=== PATIENT | female | born 1980 | race Caucasian/White ===

== ENCOUNTER 2017-02-07 12:07 | Emergency (ER) | payer OTHER ==
[2017-02-07 12:18] VITALS: TEMP 98.2; BMI 23.2
--- NOTE | 2017-02-07 12:42 | PDOC ---
History of Present Illness - General Chief Complaint: Nausea/Vomiting Stated Complaint: PAIN, 10 WKS Time Seen by Provider: 02/07/17 12:28 - History of Present Illness Initial Comments: 02/07/17 12:39 Pt. is a 36 y/o female , 10 weeks , who presents to the ED today c/ o increased nausea and vomiting. Pt. states she has history of hyperemisis . States that she has not been able to keep anything down Past History - Past Medical History Allergies/Adverse Reactions: Allergies Allergy/AdvReac Type Severity Reaction Status Date / Time No Known Allergies Allergy Verified 02/07/17 12:10 Home Medications: Ambulatory Orders NK [No Known Home Medication] 12/01/15 Other medical history: none - Surgical History Appendectomy: Yes - Reproductive History Cervical CA: No Dysfunctional Uterine Bleeding: No Ectopic : No Endometrial CA: No Polycystic Ovaries: No Tubal Ligation: No - Psycho/Social/Smoking Cessation Hx Anxiety: No Suicidal Ideation: No Smoking History: Never smoked Have you smoked in the past 12 months: No Information on smoking cessation initiated: No Hx Alcohol Use: No Drug/Substance Use Hx: No Substance Use Type: None Review of Systems - Review of Systems Constitutional: No: Chills, Fever, Malaise, Weakness Respiratory: No: Cough, Shortness of Breath, Wheezing Cardiac (ROS): Yes: Syncope. No: Chest Pain, Lightheadedness, Palpitations, Chest Tightness ABD/GI: Yes: Nausea, Vomiting. No: Constipated, Diarrhea : No: Burning, Dysuria, Discharge, Frequency, Flank Pain Musculoskeletal: Yes: Back Pain (low back pain), Muscle Pain Neurological: No: Headache, Numbness, Paresthesia, Weakness, Dizziness All Other Systems: Reviewed and Negative *Physical Exam - Vital Signs Last Vital Signs Temp Pulse Resp BP Pulse Ox 98.2 F 88 18 126/78 100 02/07/17 12:11 02/07/17 12:11 02/07/17 12:11 02/07/17 12:11 02/07/17 12:11 - Physical Exam Comments: 02/07/17 13:31 GENERAL: Well developed, well nourished. Awake and alert. No acute distress. HEENT: Normocephalic, atraumatic. PERRLA, EOMI. No conjunctival pallor. Sclera are non- icteric. Moist mucous membranes. Oropharynx is clear. NECK: Supple. Full ROM. No JVD. Carotid pulses 2+ and symmetric, without bruits. No thyromegaly. No lymphadenopathy. CARDIOVASCULAR: Regular rate and rhythm. No murmurs, rubs, or gallops. Distal pulses are 2+ and symmetric. PULMONARY: No evidence of respiratory distress. Lungs clear to auscultation bilaterally. No wheezing, rales or rhonchi. ABDOMINAL: Soft. Non-tender. Non-distended. No rebound or guarding. No organomegaly. Normoactive bowel sounds. MUSCULOSKELETAL Normal range of motion at all joints. No bony deformities or tenderness. No CVA tenderness. EXTREMITIES: No cyanosis. No clubbing. No edema. No calf tenderness. SKIN: Warm and dry. Normal capillary refill. No rashes. No jaundice. NEUROLOGICAL: Alert, awake, appropriate. Cranial nerves 2-12 intact. No deficits to light touch and temperature in face, upper extremities and lower extremities. No motor deficits in the in face, upper extremities and lower extremities. Normoreflexic in the upper and lower extremities. Normal speech. Toes are down- going bilaterally. Gait is normal without ataxia. PSYCHIATRIC: Cooperative. Good eye contact. Appropriate mood and affect. ED Treatment Course - LABORATORY CBC & Chemistry Diagram: 02/07/17 13:02 02/07/17 13:02 *DC/Admit/Observation/Transfer Diagnosis at time of Disposition: Hyperemesis gravidarum - Discharge Dispostion Disposition: HOME Condition at time of disposition: Improved Admit: No - Patient Instructions Printed Discharge Instructions: DI for Hyperemesis Gravidarum Additional Instructions: Your blood work, EKG and vital signs were normal today. You were given Zofran for your nausea. Take the medication as needed. Follow up with your ACUPRESSURE THERAPIST tomorrow. Follow up with your primary care doctor tomorrow. Eat small, plain meals to help avoid vomiting. Eat a bland diet including crackers, toast, plain rice, bananas, and apple sauce. You may take tyelnol as needed for pain. Do not take more than 4,000 mg in one day. Return to the ED if you have worsening pain, uncontrollable vomiting or any changes in your symptoms.
[2017-02-07] MEDS ORDERED: SODIUM CHLORIDE 1,000 ML IV STA (12:43)
[2017-02-07] MEDS ORDERED: ONDANSETRON 4 MG/2 ML VIAL IVPUSH ONE ×2 (12:43→15:10)
[2017-02-07] MEDS ORDERED: ONDANSETRON 4 MG/2 ML VIAL ONE (12:48)
[2017-02-07 13:07] LABS: BASOPHIL 0.2 % (0-2.0); EOSINOPHIL 0.2 % (0-4.5); MCH 30.1 pg (25.7-33.7); MCHC 33.6 g/dl (32.0-36.0); MEAN CELL VOLUME 89.6 fl (80-96); MEAN PLT VOLUME 8.6 fl (7.5-11.1); NEUTROPHILS 75.3 % (42.8-82.8); PLATELET COUNT 252 K/MM3 (134-434); RDW 13.1 % (11.6-15.6)
[2017-02-07 13:42] LABS: ALBUMIN 3.3 g/dl (3.4-5.0); ANION GAP 9 (8-16); BILIRUBIN,TOTAL 0.4 mg/dL (0.2-1.0); CO2 29 mmol/L (21-32); CREATININE 0.5 mg/dL (0.55-1.02); GLUCOSE,RANDOM 89 mg/dL (74-106); SGOT/AST 20 U/L (15-37); SGPT/ALT 32 U/L (12-78); TOT PROT 6.9 g/dl (6.4-8.2)
[2017-02-07 13:43] LABS: ALK PHOS 94 U/L (45-117)
[2017-02-07] MEDS ORDERED: ACETAMINOPHEN 1000 MG/100 ML VIAL (NON FORMULARY) IVPB ONE (13:44)
[2017-02-07] MEDS ORDERED: ACETAMINOPHEN INJECTION 100 ML IVPB ONE (13:52)
[2017-02-07 14:06] LABS: URINE APPEARANCE CLEAR; URINE BILIRUBIN NEGATIVE (NEGATIVE); URINE BLOOD 1+ (NEGATIVE); URINE COLOR STRAW; URINE GLUCOSE (UA) NEGATIVE (NEGATIVE); URINE KETONE 1+ (NEGATIVE); URINE LEUK ESTERASE NEGATIVE (NEGATIVE); URINE NITRITE NEGATIVE (NEGATIVE); URINE PROTEIN NEGATIVE (NEGATIVE); URINE UROBILINOGEN NEGATIVE mg/dL (0.2-1.0)
[2017-02-07 14:10] LABS: URINE RBC 1 /hpf (0-3); URINE WBC <1 /hpf (3-5)
--- NOTE | 2017-02-07 14:25 | PDOC ---
*Physical Exam - Vital Signs Last Vital Signs Temp Pulse Resp BP Pulse Ox 98.2 F 88 18 126/78 100 02/07/17 12:11 02/07/17 12:11 02/07/17 12:11 02/07/17 12:11 02/07/17 12:11 Heart Score/ECG Review #1 ECG reviewed & interpreted by me at: 14:54 General ECG Interpretation: Sinus Rhythm, Normal Rate (82), Normal Intervals ( qtc 462, IRBBB), No acute ischemic changes ED Treatment Course - LABORATORY CBC & Chemistry Diagram: 02/07/17 13:02 02/07/17 13:02 - ADDITIONAL ORDERS Additional order review: Laboratory Results 02/07/17 02/07/17 02/07/17 13:15 13:15 13:02 Sodium 136 Potassium 4.2 Chloride 98 Carbon Dioxide 29 Anion Gap 9 BUN 3 L D Creatinine 0.5 L D Creat Clearance w eGFR > 60 Random Glucose 89 Calcium 9.0 Total Bilirubin 0.4 AST 20 ALT 32 D Alkaline Phosphatase 94 D Total Protein 6.9 Albumin 3.3 L Lipase 261 Beta HCG, Quant 99440.1 Urine Color Straw Urine Appearance Clear Urine pH 7.0 D Urine Protein Negative Urine Glucose (UA) Negative Urine Ketones 1+ H Urine Blood 1+ H Urine Nitrite Negative Urine Bilirubin Negative Urine Urobilinogen Negative Ur Leukocyte Esterase Negative Urine RBC 1 Urine WBC <1 Ur Epithelial Cells Rare 02/07/17 13:02 RBC 4.12 MCV 89.6 MCHC 33.6 RDW 13.1 MPV 8.6 Neutrophils % 75.3 Lymphocytes % 16.7 Monocytes % 7.6 Eosinophils % 0.2 Basophils % 0.2 - Medications Given in the ED: ED Medications Discontinued Medications Generic Name Dose Route Start Last Admin Trade Name Freq PRN Reason Stop Dose Admin Acetaminophen 1,000 mg 02/07/17 13:44 02/07/17 13:55 Ofirmev Injection - IVPB 02/07/17 13:45 1,000 mg ONCE ONE Administration Sodium Chloride 1,000 mls @ 1,000 mls/hr 02/07/17 12:43 02/07/17 13:01 Normal Saline - IV 02/07/17 13:42 1,000 mls/hr ASDIR STA Administration Ondansetron HCl 4 mg 02/07/17 12:43 02/07/17 13:01 Zofran Injection IVPUSH 02/07/17 12:44 4 mg ONCE ONE Administration Medical Decision Making - Medical Decision Making 02/07/17 14:23 Patient seen and evaluated with the nurse practitioner. I agree with the overall evaluation, assessment, and management with the following summary of visit: 36-year-old female at about 10 weeks gestation with history of hyperemesis gravidarum presents with nausea/vomiting and body aches. Some vaginal spotting yesterday, no cramping or passage of clots or tissue. Exam as noted, had near syncopal/vagal episode in triage without trauma 36-year-old female with dehydration secondary to nausea/vomiting of , question recurrence of her hyperemesis. Rule out electrolyte abnormality, otherwise no red flags on history or physical exam. Check electrolytes, urinalysis IV fluid hydration, antiemetics Reassess *DC/Admit/Observation/Transfer Diagnosis at time of Disposition: Hyperemesis gravidarum
[2017-02-07 15:03] VITALS: BP 134/78; PULSE 78
--- NOTE | 2017-02-07 16:42 | EKG ---
Test Reason : Blood Pressure : / mmHG Vent. Rate : 082 BPM Atrial Rate : 082 BPM P-R Int : 122 ms QRS Dur : 088 ms QT Int : 396 ms P-R-T Axes : 066 048 024 degrees QTc Int : 462 ms NORMAL SINUS RHYTHM NORMAL ECG NO PREVIOUS ECGS AVAILABLE REPEAT EKG IF CLINICALLY INDICATED Confirmed by PRABHU TOVAR MD ([id number] on 02/07/2017 4:42:06 PM Referred By: Confirmed By:PRABHU TOVAR MD
== END 2017-02-07 15:26 | disposition home or self-care (01) ==
LOC: JER 12:07
PROC: 3E033NZ Introduction of Analgesics, Hypnotics, Sedatives into Peripheral Vein, Percutaneous Approach (ICD-10-PCS; principal; 2017-02-07)
PROC: 3E033GC Introduction of Other Therapeutic Substance into Peripheral Vein, Percutaneous Approach (ICD-10-PCS; 2017-02-07)
DX: O26.891 Other specified pregnancy related conditions, first trimester (principal); O21.0 Mild hyperemesis gravidarum; R55 Syncope and collapse; Z3A.10 10 weeks gestation of pregnancy
CPT/HCPCS: 36415; 80053; 81003; 81015; 83690; 84702; 84703; 85025; 86850; 86900; 86901; 93005; 93010; 99284-25

== ENCOUNTER 2017-02-14 16:44 | Emergency (ER) | payer OTHER ==
[2017-02-14 16:49] VITALS: BP 128/80; PULSE 110; BMI 21.2
[2017-02-14] MEDS ORDERED: SODIUM CHLORIDE 1,000 ML IV STA (17:03)
--- NOTE | 2017-02-14 17:03 | PDOC ---
History of Present Illness <Erin Gibson - Last Filed: 02/14/17 21:49> - General History Source: Patient Exam Limitations: No Limitations - History of Present Illness Initial Comments: 02/14/17 18:28 Patient is a 36 year old female, 11 weeks , with no pmhx who presents to the ED accompanied by family with complaint of muscle contraction, spasms and spaced out. As per fiance, the patient has been seen several times in the ED for nausea, vomiting and back pain. He notes that patient initially was taking Zofran, then was placed on ducligan and now is taking Raglan. As per fiance the patient has been acting not like herself and has been very shaky and spastic and this has been acting like this for week and half. Patient took compazine suppository prior to arrival. Patient is a poor historian but is awake and alert. Denies suicidal and homicidal ideation. On Car Supervisor - Dr. Shadi Gutierrez at [facility] <Paula Gonzalez - Last Filed: 02/14/17 21:55> - General Chief Complaint: Nausea/Vomiting Stated Complaint: STOMACH PAIN/11 WKS Time Seen by Provider: 02/14/17 17:01 Past History - Past Medical History Other medical history: Pt denies - Surgical History Appendectomy: Yes - Reproductive History Cervical CA: No Dysfunctional Uterine Bleeding: No Ectopic : No Endometrial CA: No Polycystic Ovaries: No Tubal Ligation: No - Psycho/Social/Smoking Cessation Hx Anxiety: No Suicidal Ideation: No Smoking History: Never smoked Have you smoked in the past 12 months: No Information on smoking cessation initiated: No Hx Alcohol Use: No Drug/Substance Use Hx: No Substance Use Type: None <Erin Gibson - Last Filed: 02/14/17 21:49> <Paula Gonzalez - Last Filed: 02/14/17 21:55> - Past Medical History Allergies/Adverse Reactions: Allergies Allergy/AdvReac Type Severity Reaction Status Date / Time No Known Allergies Allergy Verified 02/14/17 18:46 Home Medications: Ambulatory Orders NK [No Known Home Medication] 12/01/15 Review of Systems - Review of Systems Able to Perform ROS?: No Comments:: 02/14/17 18:29 Unable to obtain due to patient's mental status. <Paula Gonzalez - Last Filed: 02/14/17 21:55> *Physical Exam - Vital Signs Last Vital Signs Temp Pulse Resp BP Pulse Ox 98.2 F 110 H 18 128/80 99 02/14/17 16:47 02/14/17 16:47 02/14/17 16:47 02/14/17 16:47 02/14/17 16:47 <Erin Gibson - Last Filed: 02/14/17 21:49> - Vital Signs Last Vital Signs Temp Pulse Resp BP Pulse Ox 98.2 F 110 H 18 128/80 99 02/14/17 16:47 02/14/17 16:47 02/14/17 16:47 02/14/17 16:47 02/14/17 16:47 - Physical Exam Comments: 02/14/17 21:52 GENERAL: +Well developed, well nourished. Alert but Flat affect. Complaint of feeling anxious, abnormal muscles movements and feeling out of her own body. HEENT: Normocephalic, atraumatic. PERRLA, EOMI. No conjunctival pallor. Sclera are non- icteric. Moist mucous membranes. Oropharynx is clear. NECK: Supple. Full ROM. No JVD. Carotid pulses 2+ and symmetric, without bruits. No thyromegaly. No lymphadenopathy. CARDIOVASCULAR: Regular rate and rhythm. No murmurs, rubs, or gallops. Distal pulses are 2+ and symmetric. PULMONARY: No evidence of respiratory distress. Lungs clear to auscultation bilaterally. No wheezing, rales or rhonchi. ABDOMINAL: Flat abdomen. Soft. Non-tender. Non-distended. No rebound or guarding. No organomegaly. Normoactive bowel sounds. MUSCULOSKELETAL Normal range of motion at all joints. No bony deformities or tenderness. No CVA tenderness. EXTREMITIES: No cyanosis. No clubbing. No edema. No calf tenderness. SKIN: Warm and dry. Normal capillary refill. No rashes. No jaundice. NEUROLOGICAL: +Alert but Flat affect. Cranial nerves 2-12 intact. No deficits to light touch and temperature in face, upper extremities and lower extremities. No motor deficits in the in face, upper extremities and lower extremities. Normoreflexic in the upper and lower extremities. Normal speech. Toes are down-going bilaterally. Gait is normal without ataxia. <Paula Gonzalez - Last Filed: 02/14/17 21:55> ED Treatment Course - LABORATORY CBC & Chemistry Diagram: 02/14/17 17:20 02/14/17 17:20 <Erin Gibson - Last Filed: 02/14/17 21:49> - LABORATORY CBC & Chemistry Diagram: 02/14/17 17:20 02/14/17 17:20 - ADDITIONAL ORDERS Additional order review: 02/14/17 17:20 RBC 3.82 MCV 90.7 MCHC 33.7 RDW 13.3 MPV 8.4 Neutrophils % 70.4 Lymphocytes % 18.4 Monocytes % 10.2 Eosinophils % 0.6 D Basophils % 0.4 - Medications Given in the ED: ED Medications Discontinued Medications Generic Name Dose Route Start Last Admin Trade Name Freq PRN Reason Stop Dose Admin Sodium Chloride 1,000 mls @ 1,000 mls/hr 02/14/17 17:03 02/14/17 17:32 Normal Saline - IV 02/14/17 18:02 1,000 mls/hr ASDIR STA Administration Ondansetron HCl 4 mg 02/14/17 17:05 02/14/17 17:32 Zofran Injection IVPB 02/14/17 17:06 4 mg ONCE ONE Administration <Paula Gonzalez - Last Filed: 02/14/17 21:55> *DC/Admit/Observation/Transfer <Erin Gibson - Last Filed: 02/14/17 21:49> - Attestations Scribe Attestion: 02/14/17 18:30 Documentation prepared by ELIZABETH Oliver, acting as medical transcriptionist for Erin Gibson MD. <Paula Gonzalez - Last Filed: 02/14/17 21:55> Diagnosis at time of Disposition: Hyperemesis gravidarum - Discharge Dispostion Disposition: HOME Condition at time of disposition: Stable - Patient Instructions Printed Discharge Instructions: DI for Hyperemesis Gravidarum Additional Instructions: please see your measurement psychologist as soon as possible return for ay worsening symptoms
[2017-02-14] MEDS ORDERED: ONDANSETRON 4 MG/2 ML VIAL IVPB ONE (17:05)
[2017-02-14] MEDS ORDERED: ONDANSETRON 4 MG/2 ML VIAL ONE (17:28)
[2017-02-14 17:32] LABS: BASOPHIL 0.4 % (0-2.0); EOSINOPHIL 0.6 % (0-4.5); MCH 30.6 pg (25.7-33.7); MCHC 33.7 g/dl (32.0-36.0); MEAN CELL VOLUME 90.7 fl (80-96); MEAN PLT VOLUME 8.4 fl (7.5-11.1); NEUTROPHILS 70.4 % (42.8-82.8); PLATELET COUNT 340 K/MM3 (134-434); RDW 13.3 % (11.6-15.6); WHITE BLOOD COUNT 9.2 K/mm3 (4.0-10.0)
[2017-02-14 18:28] LABS: ALBUMIN 3.3 g/dl (3.4-5.0); ALK PHOS 76 U/L (45-117); ANION GAP 9 (8-16); BILIRUBIN,TOTAL 0.3 mg/dL (0.2-1.0); CALCIUM 8.9 mg/dL (8.5-10.1); CO2 27 mmol/L (21-32); CREATININE 0.4 mg/dL (0.55-1.02); GLUCOSE,RANDOM 85 mg/dL (74-106); SGOT/AST 16 U/L (15-37); SGPT/ALT 29 U/L (12-78)
[2017-02-14 19:49] LABS: URINE APPEARANCE CLEAR; URINE BILIRUBIN NEGATIVE (NEGATIVE); URINE BLOOD NEGATIVE (NEGATIVE); URINE COLOR STRAW; URINE GLUCOSE (UA) NEGATIVE (NEGATIVE); URINE KETONE TRACE (NEGATIVE); URINE LEUK ESTERASE TRACE (NEGATIVE); URINE NITRITE NEGATIVE (NEGATIVE); URINE PROTEIN NEGATIVE (NEGATIVE); URINE UROBILINOGEN NEGATIVE mg/dL (0.2-1.0)
[2017-02-14 19:51] LABS: URINE MUCUS RARE; URINE RBC <1 /hpf (0-3); URINE WBC <1 /hpf (3-5)
[2017-02-14 22:12] VITALS: TEMP 98.6
[2017-02-15 20:12] LABS: URINE MARIJUANA THC NEGATIVE ng/ml (CUTOFF=50)
== END 2017-02-14 22:12 | disposition home or self-care (01) ==
LOC: JER 16:44
PROC: 3E033GC Introduction of Other Therapeutic Substance into Peripheral Vein, Percutaneous Approach (ICD-10-PCS; principal; 2017-02-14)
PROC: 3E033GC Introduction of Other Therapeutic Substance into Peripheral Vein, Percutaneous Approach (ICD-10-PCS; 2017-02-14)
DX: O26.891 Other specified pregnancy related conditions, first trimester (principal); O21.0 Mild hyperemesis gravidarum; Z3A.11 11 weeks gestation of pregnancy
CPT/HCPCS: 36415; 80053; 80307; 81003; 81015; 85025; 99284-25